=== PATIENT | female | born 1995 | race Caucasian/White ===

== ENCOUNTER 2016-04-02 11:49 | Day surgery (SDC) | payer BC ==
[~2016-04-02] VITALS: Ht 165.1 cm; Wt 68.0 kg
[2016-04-02 11:14] VITALS: BP 128/85
[~2016-04-02 11:49] MED LIST: AMOX500C2 PO
--- OUTSIDE RECORDS SUMMARY | 2016-04-02 11:52 | XMS REPORT | Continuity of Care Document ---
Author Author [facility] Organization [facility] Address Unknown Phone Unavailable Care Team Providers Care Mexican Food Cook Name Role Phone CASCADE, [facility] PCP Insurance Providers Payer Name Policy Number Subscriber Name Relationship Unknown Advance Directives Directive Response Recorded Date/Time Advance Directives No 11/04/15 9:04pm Resuscitation Status Full Code 11/04/15 9:04pm Chief Complaint and Reason for Visit Chief Complaint Oral/Throat Problems Reason for Visit Pharyngitis Problems Active Problems Medical Problem Onset Date Status Pharyngitis Unknown Acute Medications Current Home Medications Medication Dose Units Route Directions Days/Qty Instructions Start Date Amoxicillin 500 Mg 500 Mg Oral Three Times A Day 11/04/15 Social History Social History Problem Response Recorded Date/Time Alcohol Use Denies Use 11/04/2015 9:04pm Recreational Drug Use No 11/04/2015 9:04pm Recent Foreign Travel No 11/04/2015 9:04pm Recent Infectious Disease Exposure No 11/04/2015 9:04pm Hospitalization with Isolation Denies 11/04/2015 9:04pm Smoking Status Never a Smoker 11/04/2015 9:04pm Recent Hopitalizations No 11/04/2015 9:04pm Hospitalization with Isolation Denies 11/04/2015 9:04pm Query Response Start Date Stop Date Smoking Status Never a Smoker Hospital Discharge Instructions No hospital discharge instructions. Plan of Care Discharge Date 11/04/15 9:15pm Disposition 01 HOME, SELF-CARE Condition at Discharge Stable Instructions/Education Provided Pharyngitis (ED) Prescriptions See Medication Section Referrals [facility] - Primary Care Physician Additional Instructions/Education 1. Use Tylenol and Motrin as needed for pain or fevers 2. Go to [facility] tomorrow morning, tell them your name and they should have a prescription waiting for you. All discharge instructions reviewed with patient and/or family. Voiced understanding. Functional Status No functional status results. Allergies, Adverse Reactions, Alerts Allergen Type Severity Reaction Status Last Updated Sulfa (Sulfonamide Antibiotics) ([id number]) Allergy Unknown Active 05/16 Immunizations No immunization records. Vital Signs Acute Vital Signs Vital Response Date/Time Temperature (Fahrenheit) 99.8 degrees F (97.6 - 99.5) 11/04/2015 9:04pm Temperature (Calculated Celsius) 37.71534 degrees C (36.4 - 37.5) 11/04/2015 9:04pm Temperature Source Tympanic 11/04/2015 9:04pm Pulse Rate (Adolescent 12-19yrs) 93 bpm (56 - 106) 11/04/2015 9:04pm O2 Sat by Pulse Oximetry 98 % (88 - 100) 11/04/2015 9:04pm Respiratory Rate (Adolescent 12-19yrs) 20 bpm (15 - 20) 11/04/2015 9:04pm Blood Pressure / Blood Pressure Systolic (Adolescent 12-19yrs) 111 mm Hg (115 - 120) 2015 9:04pm Pain Numeric Pain Scale 4 11/04/2015 9:04pm Height (Feet) 5 feet 11/04/2015 9:04pm Height (Inches) 5 inches 11/04/2015 9:04pm Height (Calculated Centimeters) 165.739313 cm 11/04/2015 9:04pm Weight (Pounds) 135 pounds 11/04/2015 9:04pm Weight (Calculated Kilograms) 61.341210 kilograms 11/04/2015 9:04pm Calculated BMI 22.46 11/04/2015 9:04pm Results No known relevant diagnostic tests, laboratory data and/or discharge summary. Procedures No known history of procedures. Encounters Encounter Location Arrival/Admit Date Discharge/Depart Date Attending Provider Departed Emergency Room [facility] 11/04/15 8:51pm 11/03 9:15pm DARIEN GELLER APRN Recent Diagnosis
--- OUTSIDE RECORDS SUMMARY | 2016-04-02 11:53 | XMS REPORT | Continuity of Care Document ---
Author Author [facility] Organization [facility] Address Unknown Phone Unavailable Care Team Providers Care Managed Care Manager Name Role Phone LA JARA, [facility] PCP Insurance Providers Payer Name Policy Number [...] (ED) Prescriptions See Medication Section Referrals [facility] - Primary Care Physician Additional Instructions/Education 1. Use Tylenol and Motrin as needed for pain or fevers 2. Go to [facility] tomorrow morning, tell them your name and they should have a prescription waiting for you. All discharge instructions reviewed with patient and/or family. Voiced understanding. Functional Status No functional status results. Allergies, Adverse Reactions, Alerts Allergen Type Severity Reaction Status Last Updated Sulfa (Sulfonamide Antibiotics) ([id number]) Allergy Unknown Active 05/16 Immunizations No immunization records. Vital Signs Acute Vital Signs Vital Response Date/Time Temperature (Fahrenheit) 99.8 degrees F (97.6 - 99.5) 11/04/2015 9:04pm Temperature (Calculated Celsius) 37.36416 degrees C (36.4 - 37.5) 11/04/2015 9:04pm [...] 5 inches 11/04/2015 9:04pm Height (Calculated Centimeters) 165.339696 cm 11/04/2015 9:04pm Weight (Pounds) 135 pounds 11/04/2015 9:04pm Weight (Calculated Kilograms) 61.110330 kilograms 11/04/2015 9:04pm Calculated BMI 22.46 11/04/2015 9:04pm Results No known relevant diagnostic tests, laboratory data and/or discharge summary. Procedures No known history of procedures. Encounters Encounter Location Arrival/Admit Date Discharge/Depart Date Attending Provider Departed Emergency Room [facility] 11/04/15 8:51pm 11/03 9:15pm DARIEN GELLER APRN Recent Diagnosis
[2016-04-02] MEDS: LACTATED RINGERS 1,000 ML IV PRN ×4 (12:00→18:58)
[2016-04-02] MEDS ORDERED: BUP/EPI 0.25% 1:200,000 (MARCAINE) 30 ML VIAL ONE (12:04)
[2016-04-02 12:25] LABS: BASOPHILS % (AUTO) 0 % (0-10); EOSINOPHILS # (AUTO) 0.1 10^3/uL (0.0-0.3); EOSINOPHILS % (AUTO) 1 % (0-10); LYMPHOCYTES # (AUTO) 1.4 X 10^3 (1.0-4.0); LYMPHOCYTES % (AUTO) 21 % (12-44); MEAN CORPUSCULAR HEMOGLOBIN 31 PG (25-34); MEAN CORPUSCULAR HGB CONC 34 G/DL (32-36); MEAN CORPUSCULAR VOLUME 91 FL (80-99); MEAN PLATELET VOLUME 8.7 FL (7.4-10.4); MONOCYTES # (AUTO) 0.5 X 10^3 (0.0-1.0); MONOCYTES % (AUTO) 8 % (0-12); NEUTROPHILS # (AUTO) 4.8 X 10^3 (1.8-7.8); NEUTROPHILS % (AUTO) 70 % (42-75); PLATELET COUNT 230 10^3/uL (130-400); RED BLOOD COUNT 3.94 10^6/uL (4.35-5.85); RED CELL DISTRIBUTION WIDTH 12.2 % (10.0-14.5); WHITE BLOOD COUNT 6.9 10^3/uL (4.3-11.0)
[2016-04-02 12:29] LABS: BILIRUBIN,URINE NEGATIVE (NEGATIVE); KETONES,URINE NEGATIVE (NEGATIVE); LEUKOCYTE ESTERASE ,URINE NEGATIVE (NEGATIVE); NITRITE,URINE NEGATIVE (NEGATIVE); PH,URINE 6 (5-9); PROTEIN,URINE NEGATIVE (NEGATIVE); UROBILINOGEN,URINE NORMAL (NORMAL)
[2016-04-02] MEDS ORDERED: ceFAZolin 1 GM/NS 50 ML IVPB IV ONE ×2 (12:30)
[2016-04-02] MEDS ORDERED: CATHETER FLUSH 10 ML SYR IV PRN (12:30)
[2016-04-02] MEDS ORDERED: MULT1TAB69 PO (12:39)
[2016-04-02 12:43] LABS: ALANINE AMINOTRANSFERASE 13 U/L (0-55); ALBUMIN 3.9 G/DL (3.2-4.5); ANION GAP 7 MMOL/L (5-14); ASPARTATE AMINO TRANSFERASE 18 U/L (5-34); BILIRUBIN,TOTAL 0.3 MG/DL (0.1-1.0); BLOOD UREA NITROGEN 11 MG/DL (7-18); BUN/CREATININE RATIO 14; CALCIUM 8.8 MG/DL (8.5-10.1); CARBON DIOXIDE 24 MMOL/L (21-32); CHLORIDE 110 MMOL/L (98-107); GFR ESTIMATED > 60; GLUCOSE 85 MG/DL (70-105); POTASSIUM 4.1 MMOL/L (3.6-5.0); SODIUM 141 MMOL/L (135-145); TOTAL PROTEIN 6.5 G/DL (6.4-8.2)
[2016-04-02] MEDS ORDERED: KETOROLAC 30 MG/ML VIAL IV ONE (13:00)
[2016-04-02] MEDS ORDERED: LACTATED RINGERS 1,000 ML IV SCH (13:00)
[2016-04-02] MEDS ORDERED: BUTORPHANOL INJ 2 MG/ML (STADOL) VIAL IV PRN (13:00)
[2016-04-02] MEDS ORDERED: fentaNYL INJECTION 100 MCG/2 ML AMP IV ONE ×2 (13:15→15:15)
--- NOTE | 2016-04-02 14:16 | Diagnostic Imaging Report ---
PROCEDURE: CT abdomen and pelvis with and without contrast. TECHNIQUE: Precontrast acquisitions were acquired through the abdomen and pelvis. Multiple contiguous axial images were obtained through the abdomen and pelvis after the administration of intravenous contrast. INDICATION: Abdominal pain. CONTRAST: 100 mL of Omnipaque 350 is administered intravenously. FINDINGS: The unenhanced phase demonstrates no urinary tract stones. No hydronephrosis. There is postcontrast symmetric enhancement and excretion from the kidneys. The cecum is projecting inferiorly into the right side of the pelvis. The appendix is normal in caliber and extends into the right aspect of the pelvis near the adnexa. There is nonspecific fatty stranding around the tip of the appendix. This is suggestive of mild inflammation which could be related to the adnexa with no definite evidence of appendicitis. In the right adnexa more posteriorly, there is a 4.3 x 3.9 cm simple appearing cyst, presumably arising from the right ovary. Very minimal amount of pelvic free fluid is seen. The lung bases appear clear. The liver, the gallbladder, the spleen, the adrenals, and the pancreas appear unremarkable. The abdominal aorta is normal in caliber. The osseous structures appear grossly unremarkable. IMPRESSION: 1. Simple appearing right adnexal cyst measuring 4.3 cm is seen probably arising from the right ovary. 2. The appendix extends into the lower right pelvis abutting the area of the right adnexa with a normal caliber. There is nonspecific focal fatty stranding near the tip of the appendix, which may relate to nonspecific adnexal edema rather than related to appendicitis. Correlate clinically. Dictated by: Dictated on workstation # [id number]
[2016-04-02] MEDS ORDERED: proPOfol 200 MG/20 ML (DIPRIVAN) VIAL IV ONE (14:29)
[2016-04-02] MEDS ORDERED: ROCURONIUM 50 MG/5 ML (ZEMURON) VIAL IV ONE (14:29)
[2016-04-02] MEDS ORDERED: DEXAMETHASONE PF 10 MG/ML (DECADRON) VIAL ONE (14:29)
[2016-04-02] MEDS ORDERED: MIDAZOLAM 2 MG/2 ML (VERSED) VIAL ONE (14:29)
[2016-04-02] MEDS ORDERED: fentaNYL INJECTION 100 MCG/2 ML AMP ONE (14:29)
[2016-04-02] MEDS ORDERED: ONDANSETRON 4 MG/2 ML (SDV) Z0FRAN ONE (14:29)
[2016-04-02] MEDS ORDERED: LACTATED RINGERS 1,000 ML IV ONE ×2 (14:29→18:09)
[2016-04-02] MEDS ORDERED: LIDOCAINE PF 2% 10 ML (XYLOCAINE) AMP ONE (14:29)
[2016-04-02] MEDS ORDERED: D5 LR IV SOLUTION 1,000 ML IV SCH (15:07)
--- NOTE | 2016-04-02 15:08 | Progress Note-Pre Operative ---
Pre-Operative Progress Note H&P Reviewed The H&P was reviewed, patient examined and no changes noted. Date H&P Reviewed: Apr 02, 2016 Time H&P Reviewed: 15:08 Pre-Operative Diagnosis: Pelvic cystis mass/acute abdomenal pain GULSHAN DIAZ MD Apr 02, 2016 15:08
[2016-04-02] MEDS ORDERED: OXYC-202 PO (15:10)
--- NOTE | 2016-04-02 15:13 | Discharge Instructions ---
Discharge Instructions Discharge Medications New, Converted or Re-Newed RX: RX on Chart Patient Instructions Patient Instructions: as directed Return to The Hospital For: as directed Activity & Diet Discharge Diet: No Restrictions Activity as Tolerated: No Orders-Post D/C & Referrals Follow Up Appt: Call to make follow up appt. for patient in 1 weeks. Activity: Rest for 24 hours, than as tolerated. Wound Care: May remove Band-Aid tomorrow. Replace as desired. Keep incisions clean and dry. Wash daily with soap and water. Diet: As tolerated-Clear Liquids only if nauseated. May shower or tub bathe as desired. No driving for 24 hours, no alcoholic beverages for 24 hours, and nothing per vagina (no tampons, douching, or intercourse) for 2 weeks. Patient to return to the clinic as soon as possible for: Temperature greater than 101F, Severe Pain, Foul discharge from incision or vagina, Excessive Bleeding (more than a period). GULSHAN DIAZ MD Apr 02, 2016 15:13
[2016-04-02] MEDS ORDERED: KETOROLAC 30 MG/ML VIAL IVP ONE (15:15)
[2016-04-02] MEDS ORDERED: ESTROGENS CONJ IV 25 MG/5 ML (PREMARIN) VIAL IVP ONE (15:15)
[2016-04-02] MEDS ORDERED: oxyCODONE/APAP 10/325MG (PERCOCET 10) TABLET PO PRN (15:15)
[2016-04-02] MEDS ORDERED: MEPERIDINE (DEMEROL) INJ 100 MG/ML IM ONE (15:15)
[2016-04-02] MEDS ORDERED: PROMETHAZINE INJ 25 MG/ML (PHENERGAN) AMP IM ONE (15:15)
[2016-04-02] MEDS ORDERED: ONDANSETRON 4 MG/2 ML (SDV) Z0FRAN IVP PRN ×2 (15:15→18:45)
[2016-04-02] MEDS ORDERED: SEVOFLURANE (ULTANE) 15 ML INHAL SOLN ONE ×2 (18:09→18:26)
[2016-04-02] MEDS ORDERED: GLYCOPYRROLATE 0.2 MG/ML (ROBINUL) 2 ML VIAL ONE (18:26)
[2016-04-02] MEDS ORDERED: NEOSTIGMINE (BLOXIVERZ ) 1 MG/1ML 10 ML VIAL ONE (18:26)
[2016-04-02] MEDS ORDERED: morphine INJ 10 MG/ML 1ML (SYR OR VIAL) ONE (18:36)
[2016-04-02] MEDS ORDERED: MEPERIDINE (DEMEROL) INJ 50 MG/ML ONE (18:37)
[2016-04-02] MEDS: morphine INJ 10 MG/ML 1ML (SYR OR VIAL) IVP PRN ×2 (18:44→18:53)
[2016-04-02] MEDS ORDERED: HYDROmorphone (DILAUDID) 2 MG/ML VIAL IVP PRN (18:45)
[2016-04-02] MEDS ORDERED: MEPERIDINE (DEMEROL) INJ 50 MG/ML IVP PRN (18:45)
[2016-04-02] MEDS ORDERED: KETOROLAC 30 MG/ML VIAL ONE (18:53)
[2016-04-02 19:35] VITALS: BP 129/83
[2016-04-02 21:30] VITALS: BP 110/69
--- NOTE | 2016-04-03 10:51 | Anesthesia-General Post-Op ---
General Patient Condition Mental Status/LOC: Same as Preop Cardiovascular: Satisfactory Nausea/Vomiting: Absent Respiratory: Satisfactory Pain: Controlled Complications: Absent Post Op Complications Complications None Follow Up Care/Instructions Patient Instructions None needed. Anesthesia/Patient Condition Patient Condition Patient is doing well, no complaints, stable vital signs, no apparent adverse anesthesia problems. No complications reported per nursing. [place] [facility] [place]: Yes DIANNA BRITT CRNA Apr 03, 2016 10:51
--- NOTE | 2016-04-03 14:25 | OPERATIVE REPORT ---
PROCEDURE PHYSICIAN: GULSHAN DIAZ DATE OF PROCEDURE: 04/02/2016 DATE OF DICTATION: 04/02/2016 PREOPERATIVE DIAGNOSIS: Acute abdominal pain with clinical suspicion for appendicitis versus torsed adnexal cyst, versus other. POSTOPERATIVE DIAGNOSES: Same with - 1. Torsed right fallopian tube due to a distal fallopian tube paratubal cyst. 2. appendiceal injection, induration, edema 3. The patient also had a left paratubal cyst that was removed. OPERATIVE PROCEDURE: Removal of right distal fallopian tube cyst with detorsion of the right fallopian tube, adhesiolysis, appendectomy, and left paratubal cystectomy. OPERATIVE DESCRIPTION: With the patient in the supine position, under satisfactory general anesthesia, she was repositioned in dorsal lithotomy position in the [facility] and prepped in usual fashion for abdominal and vaginal surgery. The urinary bladder was emptied with a straight catheter. Weighted speculum placed in posterior fornix of vagina. Cervix exposed and grasped anteriorly with a single tooth tenaculum the uterus was sounded to 8 cm uterine sound the cervix was then serially dilated with Thee dilators to accommodate the manipulator, which was placed and the bulb filled 4 mL of air. The tenaculum and speculum were removed from the vagina. The patient brought in low dorsal lithotomy position. A 5 mm incision made in the patient's left upper quadrant. 12 mm incision in the inferior margin of the umbilicus and a 5 mm incision superior to the symphysis pubis. All 3 incision sites were infiltrated with quarter percent Marcaine with epinephrine prior to incision. The Veress needle was placed through the left upper quadrant. Correct placement confirmed with the water drop test. The abdomen was insufflated with 2.4 liters of carbon dioxide then the Veress needle was removed and a 5 mm Opti laparoscopic port placed. The patient was placed in Trendelenburg. The abdomen transilluminated and 12 mm port placed in the umbilical incision. A 5 mm port superior to the symphysis pubis. The pelvis was examined. There was torsion of the right fallopian tube due to a cyst involving the distal 3rd of the fallopian tube. the right fallopian tube was somewhat dusky and cyanotic appearing. The right ovary appeared normal and was remote from the torsion. The left fallopian tube and ovary were normal. There was what appeared to be hydatid cyst or morganii or a paratubal cyst on the left dangling from a pedicle as well. The laparoscope was rotated. The appendix was identified. It was a vermiform appendix. It was thickened, indurated and injected and appeared edematous. The laparoscope was rotated further. The upper abdomen examined. There was no abnormal pathology noted there. There were some adhesions of the omentum over the appendix to the anterior abdominal wall. The laparoscope was brought back to the pelvis. First attention was turned to torsed right fallopian tube. The tube was gradually detorsed allowing the fallopian tube to pink up nicely. It was a somewhat cyanotic appearing. The fallopian tube pinked up and circulation improved and the fallopian tube began to take on a normal appearance. The peritoneum over the cyst was opened linearly along the side of the fallopian tube taking care to avoid trauma to the tube. The cyst was then shelled out of the peritoneum and removed intact, placed in an Endobag and then brought out through the umbilical incision; this did require decompressing of the cyst releasing clear fluid to remove the cyst through the umbilical incision. With that done, the pelvis was examined for hemostasis which was complete. the left fallopian tube was grasped and elevated gently. The pedunculated cystic lesion was grasped. The pedicle was cauterized, and divided; that piece of tissue was brought out through the umbilical port as well. Attention was turned to the appendix. The appendix was grasped and elevated. The mesoappendix was perforated close to the base of the appendix. An Endo GI was then placed across the base of the appendix and fired. The mesoappendix was clamped with an Endo JETT as well. When that was fired it severed the appendix from its attachment. There was no bleeding at the site. The appendix was placed in an Endobag and brought out through the umbilical incision as well. The pelvis was copiously irrigated as was the stump of the appendix. Hemostasis was complete. There was no abnormal pathology remaining, the stump of the appendix was then dripped with several drops of Betadine solution. There was some fluid in the cul-de-sac. This was aspirated out. In the doing, there was a small mesothelial appearing cyst that was removed through the suction as well. With hemostasis assured and no further pathology of note, the procedure was terminated. Sponge and needle counts were correct at this point. The operative instruments were removed under direct vision as were the ports. The abdomen was evacuated of insufflating gas in the process. No bleeding was noted at the port sites. The skin incisions were closed with interrupted sutures of 3-0 nylon. The fascia at the umbilical incision was closed with a [id number] suture of 2-0 Vicryl. The uterine manipulator bulb was drained. The instrument was removed from the vagina. Speculum replaced in the vagina. The cervix examined for hemostasis, which was complete. Sponge and needle counts were correct. Estimated blood loss was minimal. The patient tolerated the procedure well, and was uneventfully awakened from her general anesthesia and transferred to recovery room in stable condition with plans for discharge home PAR. Job ID: [id number] Dictated Date: 04/02/2016 18:29:35 Fleet Service Clerk Date: 04/03/2016 13:46:10 / evelyn TABOR
== END 2016-04-02 23:20 | disposition home or self-care (01) ==
LOC: SDC 11:49 → LDRP 19:25 → SDC 23:20
PROVIDERS: ATTEND Obstetrics & Gynecology
DX: N83.521 Torsion of right fallopian tube (principal); N83.8 Other noninflammatory disorders of ovary, fallopian tube and broad ligament; K38.0 Hyperplasia of appendix
CPT/HCPCS: 36415; 74178; 80053; 81000; 84703; 85025; 87081; 88304; 88305; 96361; 96375